=== PATIENT | male | born 1960 ===

== ENCOUNTER → 2021-08-29 11:05 | Outpatient (BNVA) | payer MEDICAID, SELFPAY | PROVIDERS: Visit Provider Podiatrist Foot & Ankle Surgery | DX: E11.42 Type 2 diabetes mellitus with diabetic polyneuropathy (principal); M79.672 Pain in left foot; M72.2 Plantar fascial fibromatosis; M20.40 Other hammer toe(s) (acquired), unspecified foot; M21.372 Foot drop, left foot | CPT/HCPCS: 99203 ==

== ENCOUNTER → 2021-08-29 11:54 | Outpatient (BNVA) | payer MEDICAID, SELFPAY | PROVIDERS: Visit Provider Podiatrist Foot & Ankle Surgery | DX: M79.672 Pain in left foot (principal) | CPT/HCPCS: 73630 ==

== ENCOUNTER 2023-06-12 08:16 | Outpatient (CLI) | payer MEDICAID, SELFPAY ==
--- NOTE | 2023-06-12 08:39 | USR_ITS ---
PROCEDURE INFORMATION: Exam: US Soft Tissue Head and Neck, Thyroid Exam date and time: 06/12/2023 8:49 AM Age: 62 years old Clinical indication: Abnormal findings; Abnormal thyroid lab test; Additional info: Abnormal result of thyroid function study TECHNIQUE: Imaging protocol: Real-time ultrasound scan of the neck with image documentation. Exam focused on the thyroid. COMPARISON: No relevant prior studies available. FINDINGS: Right thyroid lobe: The right thyroid measures 5.3 x 1.8 x 1.6 cm. Left thyroid lobe: The left thyroid measures 4.8 x 2.3 x 1.9 cm. Simple cysts in the left thyroid measuring 4-5 mm. Isthmus: The isthmus measures 3 mm. US/US thyroid [id number] IMPRESSION: Simple left thyroid cyst. No suspicious findings.
== END 2023-06-12 08:17 | disposition home or self-care (01) ==
LOC: RAD 08:17
PROVIDERS: PCP Nurse Practitioner; Visit Provider Nurse Practitioner
DX: R94.6 Abnormal results of thyroid function studies (principal); E04.1 Nontoxic single thyroid nodule
CPT/HCPCS: 76536

== ENCOUNTER → 2024-12-01 09:24 | Outpatient (BNVA) | payer MEDICAID, SELFPAY | PROVIDERS: PCP Nurse Practitioner; Visit Provider Dermatology | DX: L82.1 Other seborrheic keratosis (principal); L91.8 Other hypertrophic disorders of the skin; L73.8 Other specified follicular disorders; L57.8 Other skin changes due to chronic exposure to nonionizing radiation; D48.5 Neoplasm of uncertain behavior of skin; L57.0 Actinic keratosis | CPT/HCPCS: 11102; 17000; 99203 ==